=== PATIENT | female | born 1955 ===

== ENCOUNTER 2024-03-31 07:33 | Emergency (ER) | payer MEDICARE, OTHER ==
[~2024-03-31] VITALS: Ht 160 cm; Wt 70.0 kg
[2024-03-31 07:43] VITALS: TEMP 98.4
[2024-03-31] MEDS ORDERED: ALBU18HF12 IH (07:45)
[2024-03-31] MEDS ORDERED: HYDR25TA2 PO (07:45)
[2024-03-31] MEDS ORDERED: LOSA-381 PO (07:45)
[2024-03-31] MEDS ORDERED: ATOR20TA PO (07:45)
[2024-03-31 08:42] LABS: BASOPHILS % (AUTO) 0.1 % (0.0-2.0); EOSINOPHILS % (AUTO) 7.6 % (1.0-6.0); HEMATOCRIT 42.5 % (36-46); HEMOGLOBIN 14.1 g/dL (12.0-16.0); LYMPHOCYTES # (AUTO) 1.3 K/uL (1.0-4.8); LYMPHOCYTES % (AUTO) 16.6 % (22.0-44.0); MEAN CORPUSCULAR HEMOGLOBIN 31.1 pg (26.0-34.0); MEAN CORPUSCULAR HGB CONC 33.2 G/dL (31.0-37.0); MEAN CORPUSCULAR VOLUME 94 fL (80-100); MONOCYTES # (AUTO) 0.9 K/uL (0.1-1.0); NEUTROPHILS # (AUTO) 5.2 K/uL (1.8-7.7); NEUTROPHILS % (AUTO) 64.7 % (40.0-70.0); PLATELET COUNT (AUTO) 289 K/uL (150-450); RED BLOOD CELL COUNT(AUTO) 4.54 MIL/uL (4.00-5.20); RED CELL DISTRIBUTION WIDTH 14.2 % (11.5-14.5); WHITE BLOOD COUNT (AUTO) 8.1 K/uL (4.5-11.0)
[2024-03-31 08:51] LABS: ANION GAP 6 mmol/L (8-16); CALCIUM, TOTAL 9.4 mg/dL (8.8-10.5); CARBON DIOXIDE 34 mmol/L (22-29); CHLORIDE 103 mmol/L (98-107); CREATININE 0.65 mg/dL (0.60-1.30); GLOMERULAR FILTR. RATE CALC > 60 mL/min (>60); GLUCOSE,RANDOM 129 mg/dL (70-110); POTASSIUM 3.9 mmol/L (3.5-5.1); SODIUM SERUM 143 mmol/L (136-145); UREA NITROGEN, BLOOD 12 mg/dL (7-18)
[2024-03-31 08:57] LABS: TROPONIN I-HIGH SENSITIVITY 7 ng/L (<51)
[2024-03-31 08:58] LABS: ALANINE AMINOTRANSFERASE 28 U/L (12-78); ALBUMIN 3.8 g/dL (3.4-5.0); ALKALINE PHOSPHATASE 93 U/L (46-116); ASPARTATE AMINOTRANSFERASE 21 U/L (15-37); BILIRUBIN,TOTAL 0.4 mg/dL (0.1-1.0); TOTAL PROTEIN, SERUM 8.3 g/dL (6.4-8.2)
[2024-03-31] MEDS: IPRATROPIUM BROMIDE 0.5 MG/2.5 ML NEB SOLUTION NEB ONE ×3 (09:37→12:43)
[2024-03-31] MEDS: ALBUTEROL SULFATE 2.5 MG/0.5 ML NEB SOLUTION NEB ONE ×3 (09:37→12:42)
[2024-03-31 09:39] VITALS: PULSE 79; RESP 18; O2SAT 96
[2024-03-31 09:40] VITALS: PULSE 77; RESP 16; O2SAT 99
[2024-03-31] MEDS: MethylPREDNISolone SOD SUCC 125 MG/2 ML VIAL IVP ONE (09:43)
[2024-03-31 09:47] LABS: COVID AG,FIA SOURCE NASAL SWAB
[2024-03-31 10:12] LABS: SARS-COV2 (COVID) ANTIGEN,FIA Negative (Negative)
[2024-03-31 11:18] VITALS: PULSE 82; RESP 16; O2SAT 99
[2024-03-31 12:37] VITALS: BP 137/73
[2024-03-31 12:43] VITALS: PULSE 89; RESP 16; O2SAT 95
[2024-03-31] MEDS ORDERED: AZIT250T9 PO (13:23)
[2024-03-31] MEDS ORDERED: PRED-554 PO (13:24)
== END 2024-03-31 14:37 | disposition home or self-care (01) ==
LOC: EMS 07:34
DX: J45.901 Unspecified asthma with (acute) exacerbation (principal); I10 Essential (primary) hypertension; Z91.013 Allergy to seafood; Z20.822 Contact with and (suspected) exposure to COVID-19
CPT/HCPCS: 99285; 96374; 71045; 87426; 80053; 84484; 85025; 36415; 94640; 93005; J2919